=== PATIENT | male | born 1955 | race Caucasian/White ===

== ENCOUNTER 2017-12-24 08:11 | Emergency (ER) | payer MEDICARE ==
[2017-12-24] MEDS ORDERED: GLIPIZIDE5 MG PO (08:22)
[2017-12-24] MEDS ORDERED: LANTUS100 UNIT/M SC (08:24)
[2017-12-24 08:29] LABS: HEMATOCRIT 41.3 % (39.0-50.0); HEMOGLOBIN 14.1 g/dl (14.0-18.0); MEAN CELL VOLUME 90.2 fL CALC (80.0-100.0); MEAN CORPUSCULAR HGB 30.8 pG CALC (26.0-32.0); MEAN CORPUSCULAR HGB CONC 34.1 g/L CALC (32.0-36.0); RED BLOOD COUNT 4.58 mill/uL (4.70-6.10); RED CELL DISTRI WIDTH 13.1 % (11.5-15.5)
[2017-12-24 08:45] LABS: ALKALINE PHOSPHATASE 83 u/l (38-126); ANION GAP 19 (6-22 (CALC)); BILIRUBIN, TOTAL 1.3 mg/dL (0.0-1.4); BUN 14 mg/dL (8-23); BUN/CREATININE RATIO 14 (12-20 (CALC)); CARBON DIOXIDE 22 mmol/l (22-30); CHLORIDE 107 mmol/l (95-108); GFR > 60 ML/MIN (>=60 (CALC)); GFR FOR AFR.AMER. > 60 ML/MIN (>=60 (CALC)); LIPASE 178 u/l (23-300); POTASSIUM 4.5 mmol/l (3.5-5.1); SGOT/AST 76 u/l (19-48); SGPT/ALT 86 u/l (11-66); SODIUM 143 mmol/l (137-146); TOTAL PROTEIN 8.7 g/dL (6.3-8.2)
[2017-12-24 08:49] LABS: IMMATURE GRANULOCYTES 0.4 % (0.0-1.0); NEUT# 1.89 thou/uL (1.82-7.42)
[2017-12-24 09:24] LABS: URINE BILIRUBIN - DIPSTICK NEGATIVE (NEGATIVE); URINE BLOOD DIPSTICK LARGE (NEGATIVE); URINE COLOR YELLOW; URINE GLUCOSE - DIPSTICK NEGATIVE (NEGATIVE); URINE KETONE 15 mg/dL (NEGATIVE); URINE LEUK ESTERASE NEGATIVE (NEGATIVE); URINE NITRITE - DIPSTICK NEGATIVE (Negative); URINE PH 5.5 (4.5-8.0); URINE PROTEIN - DIPSTICK NEGATIVE (NEG-TRACE); URINE SPECIFIC GRAVITY 1.025
[2017-12-24 09:25] LABS: URINE CLARITY CLEAR
[2017-12-24 09:35] LABS: URINE RBC 25-50 RBC/hpf (0-5); URINE WBC 0-2 WBC/hpf (0-5)
[2017-12-24] MEDS ORDERED: TAMSULOSIN0.4 MG PO (10:10)
[2017-12-24] MEDS ORDERED: ZOFRAN ODT4 MG PO (10:10)
[2017-12-24] MEDS ORDERED: LORTAB 5/3255 MG PO (10:10)
[2017-12-24] MEDS ORDERED: KEFLEX250 MG PO (10:10)
[2017-12-24 11:09] VITALS: BP 138/77
== END 2017-12-24 11:09 | disposition home or self-care (01) ==
LOC: ED 08:11
PROVIDERS: Emergency Medicine
DX: E11.9 Type 2 diabetes mellitus without complications (principal); N20.1 Calculus of ureter; K75.9 Inflammatory liver disease, unspecified

== ENCOUNTER → 2018-11-05 | Outpatient (REF) | payer MEDICARE ==
[~2018-11-05] VITALS: Ht 177.8 cm; Wt 104.3 kg
[~2018-11-05] MED LIST: GLIPIZIDE5 MG PO; KEFLEX250 MG PO; LANTUS100 UNIT/M SC; LORTAB 5/3255 MG PO; MAG-OX 400400 MG PO; TAMSULOSIN0.4 MG PO; XIFAXAN550 MG PO; ZOFRAN ODT4 MG PO
[2018-11-05 08:52] VITALS: BP 141/78
== END | disposition home or self-care (01) ==
LOC: ORM 08:00 → PO 08:26
PROVIDERS: ATTEND Internal Medicine Gastroenterology
DX: Z01.818 Encounter for other preprocedural examination (principal); B18.2 Chronic viral hepatitis C; K74.60 Unspecified cirrhosis of liver; R94.5 Abnormal results of liver function studies; Z86.010 Personal history of colon polyps; E11.9 Type 2 diabetes mellitus without complications; B19.20 Unspecified viral hepatitis C without hepatic coma; Z87.442 Personal history of urinary calculi; Z98.890 Other specified postprocedural states; K00.0 Anodontia

== ENCOUNTER 2019-04-16 11:56 | Day surgery (SDC) | payer MEDICARE ==
[~2019-04-16] VITALS: Ht 180.3 cm; Wt 102.1 kg
[~2019-04-16 11:56] MED LIST changes: +GENERLAC10 GM/15 M PO; +KRISTALOSE10 GM PO
[2019-04-16 13:09] LABS: HEMATOCRIT 40.8 % (39.0-50.0); HEMOGLOBIN 13.8 g/dl (14.0-18.0); MEAN CELL VOLUME 88.3 fL CALC (80.0-100.0); MEAN CORPUSCULAR HGB 29.9 pG CALC (26.0-32.0); MEAN CORPUSCULAR HGB CONC 33.8 g/L CALC (32.0-36.0); NEUT# 1.49 thou/uL (1.82-7.42); RED BLOOD COUNT 4.62 mill/uL (4.70-6.10); RED CELL DISTRI WIDTH 13.2 % (11.5-15.5)
[2019-04-16 13:10] LABS: ALBUMIN 3.9 g/dL (3.2-5.0); ALKALINE PHOSPHATASE 79 u/l (38-126); ANION GAP 11 (6-22 (CALC)); BUN 11 mg/dL (8-23); BUN/CREATININE RATIO 16 (12-20 (CALC)); CARBON DIOXIDE 27 mmol/l (22-30); CHLORIDE 108 mmol/l (95-108); CREATININE 0.7 mg/dL (0.7-1.3); GFR > 60 ML/MIN (>=60 (CALC)); GFR FOR AFR.AMER. > 60 ML/MIN (>=60 (CALC)); POTASSIUM 4.1 mmol/l (3.5-5.1); SGOT/AST 100 u/l (19-48); SODIUM 141 mmol/l (137-146); TOTAL PROTEIN 8.2 g/dL (6.3-8.2)
[2019-04-16 13:13] LABS: BILIRUBIN, TOTAL 1.6 mg/dL (0.0-1.4)
[2019-04-16 15:25] VITALS: BP 135/67
== END 2019-04-16 15:40 | disposition home or self-care (01) ==
LOC: ENDO 11:56 → ORM 12:30 → ENDO 15:20
PROVIDERS: ATTEND Internal Medicine Gastroenterology
PROC: 0DBP8ZX Excision of Rectum, Via Natural or Artificial Opening Endoscopic, Diagnostic (ICD-10-PCS; principal; 2019-04-16)
PROC: 0DBN8ZX Excision of Sigmoid Colon, Via Natural or Artificial Opening Endoscopic, Diagnostic (ICD-10-PCS; 2019-04-16)
PROC: 0DBK8ZX Excision of Ascending Colon, Via Natural or Artificial Opening Endoscopic, Diagnostic (ICD-10-PCS; 2019-04-16)
PROC: 0DBL8ZX Excision of Transverse Colon, Via Natural or Artificial Opening Endoscopic, Diagnostic (ICD-10-PCS; 2019-04-16)
PROC: 06L38CZ Occlusion of Esophageal Vein with Extraluminal Device, Via Natural or Artificial Opening Endoscopic (ICD-10-PCS; 2019-04-16)
DX: Z12.11 Encounter for screening for malignant neoplasm of colon (principal); D12.2 Benign neoplasm of ascending colon; D12.3 Benign neoplasm of transverse colon; D12.8 Benign neoplasm of rectum; D12.5 Benign neoplasm of sigmoid colon; D12.7 Benign neoplasm of rectosigmoid junction; K64.4 Residual hemorrhoidal skin tags; K64.8 Other hemorrhoids; K74.69 Other cirrhosis of liver; I85.10 Secondary esophageal varices without bleeding; K29.70 Gastritis, unspecified, without bleeding; K31.9 Disease of stomach and duodenum, unspecified; B18.2 Chronic viral hepatitis C; K72.90 Hepatic failure, unspecified without coma; D69.59 Other secondary thrombocytopenia; E11.9 Type 2 diabetes mellitus without complications; Z86.010 Personal history of colon polyps

== ENCOUNTER 2019-04-16 17:18 | Emergency (ER) | payer MEDICARE ==
[~2019-04-16] VITALS: Ht 180.3 cm; Wt 100.0 kg
[2019-04-16 18:41] LABS: HEMATOCRIT 39.5 % (39.0-50.0); HEMOGLOBIN 13.7 g/dl (14.0-18.0); IMMATURE GRANULOCYTES 0.3 % (0.0-5.0); MEAN CELL VOLUME 88.6 fL CALC (80.0-100.0); MEAN CORPUSCULAR HGB 30.7 pG CALC (26.0-32.0); MEAN CORPUSCULAR HGB CONC 34.7 g/L CALC (32.0-36.0); NEUT# 2.37 thou/uL (1.82-7.42); RED BLOOD COUNT 4.46 mill/uL (4.70-6.10)
[2019-04-16 18:48] LABS: ALBUMIN 3.9 g/dL (3.2-5.0); ALKALINE PHOSPHATASE 76 u/l (38-126); ANION GAP 12 (6-22 (CALC)); BILIRUBIN, TOTAL 1.7 mg/dL (0.0-1.4); BUN 13 mg/dL (8-23); BUN/CREATININE RATIO 18 (12-20 (CALC)); CARBON DIOXIDE 24 mmol/l (22-30); CHLORIDE 109 mmol/l (95-108); CREATININE 0.8 mg/dL (0.7-1.3); GFR > 60 ML/MIN (>=60 (CALC)); GFR FOR AFR.AMER. > 60 ML/MIN (>=60 (CALC)); LIPASE 286 u/l (23-300); SGOT/AST 93 u/l (19-48); SODIUM 140 mmol/l (137-146); TOTAL PROTEIN 8.5 g/dL (6.3-8.2)
[2019-04-16 21:29] VITALS: BP 136/71
== END 2019-04-16 21:29 | disposition home or self-care (01) ==
LOC: ED 17:18 → ED-I 17:46 → ED 17:46 → ED-I 19:20 → ED 21:29
PROVIDERS: Family Medicine
DX: G89.18 Other acute postprocedural pain (principal); R07.9 Chest pain, unspecified; R94.31 Abnormal electrocardiogram [ECG] [EKG]; F17.200 Nicotine dependence, unspecified, uncomplicated; M25.512 Pain in left shoulder; M25.511 Pain in right shoulder; M54.9 Dorsalgia, unspecified; Y92.009 Unspecified place in unspecified non-institutional (private) residence as the place of occurrence of the external cause; K74.60 Unspecified cirrhosis of liver; R16.1 Splenomegaly, not elsewhere classified; K80.20 Calculus of gallbladder without cholecystitis without obstruction; E11.9 Type 2 diabetes mellitus without complications; Z79.4 Long term (current) use of insulin

== ENCOUNTER 2019-08-30 09:50 | Emergency (ER) | payer MEDICARE ==
[2019-08-30] MEDS ORDERED: EPCLUSA PO (10:11)
[2019-08-30] MEDS ORDERED: DOXYCYC MONO100 M2 PO (10:21)
[2019-08-30 10:47] VITALS: BP 122/55
== END 2019-08-30 10:47 | disposition home or self-care (01) ==
LOC: ED 09:50
DX: J06.9 Acute upper respiratory infection, unspecified (principal); E11.9 Type 2 diabetes mellitus without complications; Z79.4 Long term (current) use of insulin

== ENCOUNTER 2021-09-16 20:38 | Emergency (ER) | payer MEDICARE ==
[~2021-09-16] VITALS: Ht 180.3 cm; Wt 99.0 kg
[~2021-09-16 20:38] MED LIST changes: +DOXYCYC MONO100 M2 PO; +EPCLUSA PO; +LANTUS100 UNIT SC; -LANTUS100 UNIT/M SC
[2021-09-16 21:20] LABS: HEMATOCRIT 43.3 % (39.0-50.0); IMMATURE GRANULOCYTES 0.3 % (0.0-5.0); MEAN CELL VOLUME 88.9 fL CALC (80.0-100.0); MEAN CORPUSCULAR HGB 30.8 pG CALC (26.0-32.0); MEAN CORPUSCULAR HGB CONC 34.6 g/dL CAL (32.0-36.0); NEUT# 7.69 thou/uL (1.82-7.42); RED BLOOD COUNT 4.87 mill/uL (4.70-6.10); RED CELL DISTRI WIDTH 12.9 % (11.5-15.5)
[2021-09-16 21:37] LABS: ALBUMIN 4.5 g/dL (3.2-5.0); ALKALINE PHOSPHATASE 92 u/l (38-126); ANION GAP 16 (6-22 (CALC)); BILIRUBIN, TOTAL 2.2 mg/dL (0.0-1.4); BUN 21 mg/dL (8-23); BUN/CREATININE RATIO 19 (12-20 (CALC)); CARBON DIOXIDE 23 mmol/l (22-30); CHLORIDE 102 mmol/l (95-108); CPK 150 u/l (52-200); CREATININE 1.1 mg/dL (0.7-1.3); GFR > 60 ML/MIN (>=60 (CALC)); GFR FOR AFR.AMER. > 60 ML/MIN (>=60 (CALC)); POTASSIUM 4.6 mmol/l (3.5-5.1); SGOT/AST 101 u/l (19-48); SODIUM 137 mmol/l (137-146)
[2021-09-16] MEDS ORDERED: OMEPRAZOLE20 MG PO (21:45)
[2021-09-16] MEDS ORDERED: MAGNESIUM CITR125 MG PO (21:45)
[2021-09-16] MEDS ORDERED: SPIRONOLACTONE25 MG PO (21:47)
[2021-09-16 21:48] LABS: MYOGLOBIN 158 ng/mL (0 - 121)
[2021-09-16] MEDS ORDERED: FUROSEMIDE20 MG PO (21:48)
[2021-09-16 22:17] LABS: URINE BILIRUBIN - DIPSTICK NEGATIVE (NEGATIVE); URINE BLOOD DIPSTICK LARGE (NEGATIVE); URINE COLOR YELLOW; URINE GLUCOSE - DIPSTICK >=1000 mg/dL (NEGATIVE); URINE KETONE 15 mg/dL (NEGATIVE); URINE LEUK ESTERASE NEGATIVE (NEGATIVE); URINE NITRITE - DIPSTICK NEGATIVE (Negative); URINE PH 5.5 (4.5-8.0); URINE PROTEIN - DIPSTICK NEGATIVE (NEG-TRACE); URINE SPECIFIC GRAVITY >=1.030; URINE UROBILINOGEN - DIPSTICK 0.2 E.U./dL (0.2)
[2021-09-16 22:25] LABS: URINE HYALINE CAST FEW lpf (NONE-RARE)
[2021-09-16] MEDS ORDERED: CYCLOBENZAPRINE10 MG PO (23:55)
[2021-09-16] MEDS ORDERED: NAPROXEN500 MG PO (23:55)
[2021-09-17 00:10] VITALS: BP 128/65
== END 2021-09-17 00:30 | disposition home or self-care (01) ==
LOC: ED 20:38
PROVIDERS: Emergency Medicine
DX: R25.2 Cramp and spasm (principal); E11.9 Type 2 diabetes mellitus without complications; Z79.84 Long term (current) use of oral hypoglycemic drugs; Z79.4 Long term (current) use of insulin

== ENCOUNTER 2021-12-11 08:24 | Observation (INO) | payer MEDICARE ==
[~2021-12-11] VITALS: Ht 177.8 cm; Wt 91.0 kg
[2021-12-11] VITALS (26 sets, daily range): BP systolic 98–145; BP diastolic 51–77
[~2021-12-11 08:24] MED LIST changes: +CYCLOBENZAPRINE10 MG PO; +FUROSEMIDE20 MG PO; +MAGNESIUM CITR125 MG PO; +NAPROXEN500 MG PO; +OMEPRAZOLE20 MG PO; +SPIRONOLACTONE25 MG PO
--- NOTE | 2021-12-11 09:11 | NUR ---
PT TO ROOM W/STEADY GAIT.
--- NOTE | 2021-12-11 10:00 | NUR ---
Reassessment of patient completed. No distress noted.
[2021-12-11 10:33] LABS: HEMATOCRIT 36.8 % (39.0-50.0); HEMOGLOBIN 12.7 g/dl (14.0-18.0); IMMATURE GRANULOCYTES 0.6 % (0.0-5.0); MEAN CELL VOLUME 89.3 fL CALC (80.0-100.0); MEAN CORPUSCULAR HGB 30.8 pG CALC (26.0-32.0); MEAN CORPUSCULAR HGB CONC 34.5 g/dL CAL (32.0-36.0); RED BLOOD COUNT 4.12 mill/uL (4.70-6.10); RED CELL DISTRI WIDTH 12.5 % (11.5-15.5)
[2021-12-11 10:39] LABS: PROTHROMBIN TIME 10.4 SECONDS (9.0-12.5)
--- NOTE | 2021-12-11 11:00 | NUR ---
Reassessment of patient completed. No distress noted.
[2021-12-11 11:05] LABS: ALBUMIN 3.6 g/dL (3.2-5.0); ALKALINE PHOSPHATASE 65 u/l (38-126); ANION GAP 8 (6-22 (CALC)); BUN 14 mg/dL (8-23); BUN/CREATININE RATIO 18 (12-20 (CALC)); CARBON DIOXIDE 27 mmol/l (22-30); CHLORIDE 106 mmol/l (95-108); CREATININE 0.8 mg/dL (0.7-1.3); GFR > 60 ML/MIN (>=60 (CALC)); GFR FOR AFR.AMER. > 60 ML/MIN (>=60 (CALC)); POTASSIUM 4.9 mmol/l (3.5-5.1); SGOT/AST 52 u/l (19-48); SODIUM 135 mmol/l (137-146); TOTAL PROTEIN 8.1 g/dL (6.3-8.2)
[2021-12-11 11:06] LABS: BILIRUBIN, TOTAL 1.2 mg/dL (0.0-1.4)
[2021-12-11 11:33] LABS: MANUAL DIFFERENTIAL YES
[2021-12-11 11:58] LABS: PLATELET COUNT 19 thou/uL (130-400)
[2021-12-11 11:59] LABS: BAND 0 % (0-8)
--- NOTE | 2021-12-11 12:00 | NUR ---
Reassessment of patient completed. No distress noted.
--- NOTE | 2021-12-11 13:18 | NUR ---
patient and vistor notified myself and charge nurse after being brought to tx room that they were covid + as of 2 days ago. educated patient on isolation precautions that will be implemented and showed patient and visitor how to utilize the call light for needs
--- NOTE | 2021-12-11 15:13 | NUR ---
REPORT CALLED TO PAOLO HANSEN
[2021-12-11] MEDS ORDERED: MAGNESIUM OXID400 M2 PO (15:31)
--- NOTE | 2021-12-11 15:48 | NUR ---
RECEIVE REPORT FROM ER NURSE WHIT. PATIENT COVID 19 POSITIVE. NO RESPIRAQTORY DISTRESS AT THIS TIME. PATIENT A ROOM AIR. PATIENT IS EDUCATES ABOUT ADMISSION, MEDICATIONS AND NURASING PLAN. PATIENT REFER UNDERSTAND. AFFECTED SKIN AREA ISSUE IN THE LEFT INNER THIGH PHOTO IS TAKE.
--- NOTE | 2021-12-11 18:45 | NUR ---
RECEIVED REPORT FROM PAOLO CAMPOS.
--- NOTE | 2021-12-11 20:10 | NUR ---
PT IN BED A&O X2. EVEN AND UNLABORED RESPIRATIONS; CLEAR LUNG SOUNDS UPON AUSCULTATION. ACTIVE BOWEL SOUNDS X4 QUADRANTS. IV SITE HEALTHY AND PATENT. PT TEARFUL; CONCERNED ABOUT HIS HEALTH; PT MORE CALM AFTER THERAPEUTIC LISTENING. BED ALARM AND SAFETY PRECAUTIONS IN PLACE WITH CALL LIGHT IN REACH.
[2021-12-12 00:23] VITALS: BP 128/67
--- NOTE | 2021-12-12 04:15 | NUR ---
PT SLEEPING. ADMINISTERED SCHEDULED ANTIBIOTIC. NEW IV FLUID BAG HANGING. TELEMETRY; BED ALARM, AND SAFETY PRECAUTIONS IN PLACE. CALL LIGHT WITHIN REACH.
[2021-12-12 04:43] VITALS: BP 120/69
[2021-12-12 05:46] LABS: ALBUMIN 3.1 g/dL (3.2-5.0); ALKALINE PHOSPHATASE 59 u/l (38-126); ANION GAP 9 (6-22 (CALC)); BUN 11 mg/dL (8-23); BUN/CREATININE RATIO 16 (12-20 (CALC)); CARBON DIOXIDE 22 mmol/l (22-30); CHLORIDE 110 mmol/l (95-108); CREATININE 0.7 mg/dL (0.7-1.3); GFR > 60 ML/MIN (>=60 (CALC)); GFR FOR AFR.AMER. > 60 ML/MIN (>=60 (CALC)); MAGNESIUM 1.7 mg/dL (1.6-2.3); POTASSIUM 4.1 mmol/l (3.5-5.1); SGOT/AST 43 u/l (19-48); SODIUM 136 mmol/l (137-146); TOTAL PROTEIN 7.3 g/dL (6.3-8.2)
[2021-12-12 05:57] LABS: HEMATOCRIT 34.9 % (39.0-50.0); HEMOGLOBIN 12.2 g/dl (14.0-18.0); IMMATURE GRANULOCYTES 0.7 % (0.0-5.0); MEAN CELL VOLUME 88.4 fL CALC (80.0-100.0); MEAN CORPUSCULAR HGB 30.9 pG CALC (26.0-32.0); NEUT# 0.93 thou/uL (1.82-7.42); RED BLOOD COUNT 3.95 mill/uL (4.70-6.10); RED CELL DISTRI WIDTH 12.5 % (11.5-15.5)
--- NOTE | 2021-12-12 08:00 | NUR ---
SHIFT CHANGE REPORT, PT AWAKE AND ALERT, ORIENTED TO PLACE AND [place], DENIES PAIN, STATES HE FEELS DEPRESSED AND WANTS TO GO HOME, INFORMED OFPROCESS AND THAT MD WILL BE HERE SOON TO DISCUSS PLAN OF CARE. IVF INFUSING, TELE MONITOR IN PLACE, CALL VANCE IN REACH AND BED LOCKED IN LOWEST POSITION.
[2021-12-12 09:56] VITALS: BP 128/63
[2021-12-12 11:08] VITALS: BP 111/55
--- NOTE | 2021-12-12 12:27 | NUR ---
ASSISTED TO BR, PT AMBULATED ACK TO BED IDEPENDENTLY. DR CALDERON CONSULTED, SAID HE WOULD PRESCRIBE ANTIBIOTICS BUT AWAITING CX RESULTS. PT RESPONDED TO QUESTIONS BEST HE REMEMBERED. WOUND HAS ACTIVE BLOODY EXUDATE AT THIS TIME, CLEANED WITH 0.9 NS AND DRY DRESSING APPLIED.
[2021-12-12 15:43] VITALS: BP 125/66
--- NOTE | 2021-12-12 17:00 | NUR ---
PT PUT CALL VANCE ON, STAFF AT NURSING STATION ANSWERED BUT DIDNT GO TO ASSIST PT, NURSE WENT IN TO INVESTIGATE REASON FOR CALL AND FOUND PT STANDING AT BEDSIDE WITH BM ALL OVER FLOOR AND ARM WITH STRETCHED OUT TO PREVENT CATHETER FROM DISLODGING. PT WAS VERY EMBARRASSED AND CRYING STATING HE COULDN'T WAIT ANY LONGER. PT WAS ASSISTED TO BR AND SHOWERED, THEN SETTLED BACK IN BED, HE WAS APPRECIATIVE, CALL VANCE PLACED IN REACH
--- NOTE | 2021-12-12 17:03 | NUR ---
CALLED DR. MONAE ON CONSULTATION FOR THIS PT.
--- NOTE | 2021-12-12 19:20 | NUR ---
REPORT RECEIVED FROM Mauro DIETZ RN
--- NOTE | 2021-12-12 22:16 | NUR ---
MEDICATIONS ADMINISTERED PER EMAR, SEE EMAR.
--- NOTE | 2021-12-13 00:30 | NUR ---
PATIENT RESTING COMFORTABLY, ASKING FOR A CUP OF ICE WATER, ICE WATER PROVIDED BY WRITTER, CALL LIGHT AND BEDSIDE TABLE WITHIN REACH.
[2021-12-13 05:47] LABS: ALBUMIN 3.1 g/dL (3.2-5.0); ALKALINE PHOSPHATASE 63 u/l (38-126); ANION GAP 8 (6-22 (CALC)); BILIRUBIN, TOTAL 1.4 mg/dL (0.0-1.4); BUN 8 mg/dL (8-23); BUN/CREATININE RATIO 13 (12-20 (CALC)); C-REACTIVE PROTEIN 0.7 mg/dL (0-0.9); CARBON DIOXIDE 21 mmol/l (22-30); CHLORIDE 111 mmol/l (95-108); CREATININE 0.7 mg/dL (0.7-1.3); GFR > 60 ML/MIN (>=60 (CALC)); GFR FOR AFR.AMER. > 60 ML/MIN (>=60 (CALC)); MAGNESIUM 1.6 mg/dL (1.6-2.3); POTASSIUM 3.8 mmol/l (3.5-5.1); SGOT/AST 39 u/l (19-48); SODIUM 135 mmol/l (137-146); TOTAL PROTEIN 7.1 g/dL (6.3-8.2)
[2021-12-13 05:58] LABS: HEMATOCRIT 34.9 % (39.0-50.0); HEMOGLOBIN 12.2 g/dl (14.0-18.0); MEAN CELL VOLUME 89.5 fL CALC (80.0-100.0); MEAN CORPUSCULAR HGB 31.3 pG CALC (26.0-32.0); RED BLOOD COUNT 3.9 mill/uL (4.70-6.10); RED CELL DISTRI WIDTH 12.4 % (11.5-15.5)
[2021-12-13 05:59] LABS: NEUT# 0.84 thou/uL (1.82-7.42)
--- NOTE | 2021-12-13 06:00 | NUR ---
MEDICATIONS ADMINISTER PER EMAR, SEE EMAR.
--- NOTE | 2021-12-13 06:51 | NUR ---
NOTIFIED DR OSULLIVAN OF CRITICAL LAB VALUES.
--- NOTE | 2021-12-13 07:00 | NUR ---
RECEIVE REPORT FROM OLGA LIDIA BOONE.
[2021-12-13 08:00] VITALS: BP 144/68
--- NOTE | 2021-12-13 08:00 | NUR ---
PATIENT ALERT AND ORIENTES X3. NO RESPIRATORY DISTRESS AT THIS TIME. PATIENT RESTING IN BED. PATIENT IS EDUCATES ABOUT MEDICATIONS AND NURSING PLAN FOR TODAY. PATIENT REFER UNDERSTAND.
--- NOTE | 2021-12-13 08:02 | NUR ---
S: LINDA MELLO is a 66 M who presents with left thigh abscess. He has a history of diabetes and hepatitis C. All medications in patient's chart were reviewed. O: VS: BP 125/66 mmHg, P 65 bpm, RR 21 bpm, T 98.8 F W 90.6 kg, HT 5 ft 10 in, Scr= 0.7 mg/dL, CrCl= 93.1 ml/min A: Preliminary blood cultures show no growth after 24 hours. Wound culture is pending. P: Patient is on cefepime 1 g IV q12h. Vancomycin ordered for pharmacy to dose. Start Vancomycin 1,250 mg IV Q12H. Vancomycin trough is drawn before the 4th dose on 12/14/2021 at 0430. Vancomycin goal trough is between 10-15 mcg/ml Pharmacy will follow and or advise on antibiotics use as needed.
[2021-12-13 11:01] VITALS: BP 128/67
--- NOTE | 2021-12-13 14:04 | NUR ---
PATIENT WITH ORDER TO TRANDFUSE PATELETS TOMORROW MORNING IN THE OPERETING ROOM. ORDER CONFIRMED WITH PATRICIO OR NURSE.
[2021-12-13 14:23] LABS: INTERNATIONAL NORMALIZED RATIO 1.1 RATIO (0.7-1.3)
--- NOTE | 2021-12-13 19:05 | NUR ---
REPORT RECEIVED FROM Janice SMITH RN. PATIENT IS TO RECEIVED PLATELETS IN OR TOMORROW MORNING. CONSULTED WITH PUBLISHING DIRECTOR WHO CONFRIMED.
[2021-12-13 19:13] VITALS: BP 128/65
--- NOTE | 2021-12-13 21:00 | NUR ---
MEDICATIONS ADMINISTERED PER EMAR, SEE EMAR. NOTIFIED PT HE IS TO BE NPO AT MIDNIGHT IN PREPARARTION FOR HIS PROCEDURE IN THE AM.
[2021-12-14] VITALS (14 sets, daily range): BP systolic 117–150; BP diastolic 60–79
--- NOTE | 2021-12-14 00:25 | NUR ---
PATIENT RESTING COMFORTABLY, DEENIES ANY CURRENT NEEDS, CALL LIGHT WIHTIN REACH.
--- NOTE | 2021-12-14 04:00 | NUR ---
PANTIBIOTIC HUNG AT THIS TIME
[2021-12-14 05:05] LABS: ANION GAP 8 (6-22 (CALC)); BUN 8 mg/dL (8-23); BUN/CREATININE RATIO 11 (12-20 (CALC)); CARBON DIOXIDE 22 mmol/l (22-30); CHLORIDE 110 mmol/l (95-108); CREATININE 0.7 mg/dL (0.7-1.3); GFR > 60 ML/MIN (>=60 (CALC)); GFR FOR AFR.AMER. > 60 ML/MIN (>=60 (CALC)); MAGNESIUM 1.5 mg/dL (1.6-2.3); POTASSIUM 3.6 mmol/l (3.5-5.1); SODIUM 136 mmol/l (137-146)
[2021-12-14 05:10] LABS: HEMATOCRIT 33.2 % (39.0-50.0); HEMOGLOBIN 11.6 g/dl (14.0-18.0); MEAN CELL VOLUME 87.4 fL CALC (80.0-100.0); MEAN CORPUSCULAR HGB 30.5 pG CALC (26.0-32.0); MEAN CORPUSCULAR HGB CONC 34.9 g/dL CAL (32.0-36.0); RED BLOOD COUNT 3.8 mill/uL (4.70-6.10); RED CELL DISTRI WIDTH 12.3 % (11.5-15.5)
[2021-12-14 05:11] LABS: NEUT# 1.09 thou/uL (1.82-7.42)
--- NOTE | 2021-12-14 06:24 | NUR ---
SPOKE TO SHANNON PIZARRO PATIENT POA. SHE STATES NO ONE HAS INFORMED HER SHE NEEDS TO SIGN ANYTHING, AND SHE IS NOT AWARE OF WHAT PROCEDURE IS BEING DONE.
--- NOTE | 2021-12-14 06:26 | NUR ---
BAND BIAS MACHINE OPERATOR NOTIFIED.
--- NOTE | 2021-12-14 06:45 | NUR ---
CALL TO LAB TO VERIFY PLATELETS ARE READY FOR PREOP ADMINISTRATION, SURVEILLANCE DIRECTOR WILL CALL BACK WITH INFO. PER REPORT PLATELETS SHOULD WERE ALREADY ORDERED.
--- NOTE | 2021-12-14 07:18 | NUR ---
CALLED OR TO NOTIFY ABOUT PATIENTS CONSENT NOT BEING SIGNED BY POA. INSTRUCTED TO CALL DOV AT [phone]. NO SURGERY UNTIL CONSENT IS SIGNED.
--- NOTE | 2021-12-14 07:23 | NUR ---
Ang DAVID RN. CALLED PT . OR TO CALL PATIENT .
--- NOTE | 2021-12-14 08:00 | NUR ---
RECEIVE REPORT FROM OLGA LIDIA BOONE. PATIENT STABLE RESTING IN BED. ROOM AIR. NO RESPIRATORY DISTRESS AT THIS TIME. PATIENT WITH OR PROCEDURE PLAN FOR TODAY. WE COMMUNICATED WITH THE SO THAT SHE COULD SIGN THE CONSENTS. /POA ARRIVED AT 07:30 SHE SIGNED. THE DOCTOR DOV EDUCATED HER AND GUIDED ABOUT PROCEDURE. SHE REFER UNDERSTAND.
--- NOTE | 2021-12-14 08:30 | NUR ---
PATIENT IN OR.
--- NOTE | 2021-12-14 09:45 | NUR ---
PATIENT RETURNSSTABLE FROM OR. PROTOCOL AND MEDICAL ORDER FOLLOWED.
--- NOTE | 2021-12-14 16:00 | NUR ---
PATIENT IN BED WATCHING TV. NO SXS OF DISTRESS, PATIENT DENIES NEEDING ANYTHING.
--- NOTE | 2021-12-14 19:45 | NUR ---
PT RESTING IN BED WATCHING TV, NO SIGNS OF DISTRESS NOTED, RESP EVEN AND UNLABORED. PT ALERT AND ORIENTED X3, NOTED PT HAS SOME DELAY AND SLURRED, ANSWERS QUESTIONS APPROPRIATELY, MOVES ALL EXTREMITIES. DISCUSSED POC, VERBALIZED UNDERSTANDING. SCD TO RLE, LLE DRESSING CDI, DENIES ANY PAIN AT THIS TIME. NEW BAG HUNG, ASSESSMENT COMPLETED, CALL LIGHT IN REACH,CONTINUE TO MONITOR.
--- NOTE | 2021-12-14 20:42 | NUR ---
PT WATCHING TV, NO SIGNS OF DISTRESS NOTED, RESP EVEN AND UNLABORED. PT VOICES NO NEEDS OR COMLAINTS AT THIS TIME. MEDICATED PER MAR. CALL LIGHT IN REACH,CONTINUE TO MONITOR.
--- NOTE | 2021-12-15 00:17 | NUR ---
PT RESTING IN BED, VITALS OBTAINED, PT VOICES NO NEEDS OR COMPLAINTS, CALL LIGHT IN REACH,CONTINUE TO MONITOR.
--- NOTE | 2021-12-15 04:04 | NUR ---
PT C/O HEADACHE MEDICATED WITH TYLENOL, IV ANTIBIOTIC HUNG. NO SIGNS OF DISTRESS NOTED, RESP EVEN AND UNLABORED. CALL LIGHT IN REACH,CONTINUE TO MONITOR.
[2021-12-15 04:15] VITALS: BP 126/52
[2021-12-15 05:14] LABS: ALBUMIN 3.4 g/dL (3.2-5.0); ALKALINE PHOSPHATASE 59 u/l (38-126); ANION GAP 7 (6-22 (CALC)); BILIRUBIN, TOTAL 1.1 mg/dL (0.0-1.4); BUN 6 mg/dL (8-23); BUN/CREATININE RATIO 10 (12-20 (CALC)); CARBON DIOXIDE 21 mmol/l (22-30); CHLORIDE 110 mmol/l (95-108); CREATININE 0.7 mg/dL (0.7-1.3); GFR > 60 ML/MIN (>=60 (CALC)); GFR FOR AFR.AMER. > 60 ML/MIN (>=60 (CALC)); MAGNESIUM 1.6 mg/dL (1.6-2.3); POTASSIUM 3.5 mmol/l (3.5-5.1); SGOT/AST 43 u/l (19-48); SODIUM 135 mmol/l (137-146); TOTAL PROTEIN 7.4 g/dL (6.3-8.2)
[2021-12-15 05:23] LABS: HEMATOCRIT 33.4 % (39.0-50.0); HEMOGLOBIN 11.8 g/dl (14.0-18.0); MEAN CELL VOLUME 87.7 fL CALC (80.0-100.0); MEAN CORPUSCULAR HGB CONC 35.3 g/dL CAL (32.0-36.0); RED BLOOD COUNT 3.81 mill/uL (4.70-6.10); RED CELL DISTRI WIDTH 12.2 % (11.5-15.5)
[2021-12-15 05:24] LABS: NEUT# 1.43 thou/uL (1.82-7.42)
--- NOTE | 2021-12-15 08:00 | NUR ---
GOT REPORT FROM UNIT SECRETARY NURSE. PATIENT IS AOX3, DENIES ANY SOB OR CHEST PAIN. PATIENT WOUND WAS EXPOSED, CLEANSED WOUND AND APPLIED DRY GUAZE AND WRAP. PATIENT TOLERATED WELL.
[2021-12-15 08:28] VITALS: BP 143/73
--- NOTE | 2021-12-15 12:00 | NUR ---
PATIENT SITTING UP IN BED WATCHING TV, AWAITING DISCHARGE. HE CALLED HIS SPOUSE TO INFORM HER THAT HE WILL BE GETTING DISCHARGED.NO QUESTIONS OR CONCERNS AT THIS TIME.
[2021-12-15] MEDS ORDERED: LEVAQUIN750 M1 PO (12:39)
--- NOTE | 2021-12-15 13:38 | NUR ---
Discharge instructions given. Patient verbalizes understanding of same. Discharged in stable condition via Wheelchair to Home with family WITH HOME HEALTH. All belongings sent with pt.
== END 2021-12-15 13:38 ==
LOC: ED 08:24 → ED-I 11:59 → ED 12:09 → MS2 12:10
PROVIDERS: Nurse Practitioner; ADMIT Internal Medicine; ATTEND Internal Medicine
PROC: 30233R1 Transfusion of Nonautologous Platelets into Peripheral Vein, Percutaneous Approach (ICD-10-PCS; principal; 2021-12-14)
PROC: 0JDM0ZZ Extraction of Left Upper Leg Subcutaneous Tissue and Fascia, Open Approach (ICD-10-PCS; 2021-12-14)
DX: L02.416 Cutaneous abscess of left lower limb (principal); D69.6 Thrombocytopenia, unspecified; D72.819 Decreased white blood cell count, unspecified; L03.116 Cellulitis of left lower limb; U07.1 COVID-19; E83.42 Hypomagnesemia; E11.9 Type 2 diabetes mellitus without complications; B18.2 Chronic viral hepatitis C; K72.90 Hepatic failure, unspecified without coma; B96.5 Pseudomonas (aeruginosa) (mallei) (pseudomallei) as the cause of diseases classified elsewhere; Z79.4 Long term (current) use of insulin; Z79.84 Long term (current) use of oral hypoglycemic drugs
CPT/HCPCS: J0692; J3370; J3490; P9034; Q3014

== ENCOUNTER 2024-08-18 10:48 | Emergency (ER) | payer MEDICARE ==
[2024-08-18] VITALS (16 sets, daily range): BP systolic 86–152; BP diastolic 54–88
[~2024-08-18] VITALS: Ht 177.8 cm; Wt 77.0 kg
[~2024-08-18 10:48] MED LIST changes: +LEVAQUIN750 M1 PO; +MAGNESIUM OXID400 M2 PO
--- NOTE | 2024-08-18 10:48 | NUR ---
PT TO ROOM VIA EMS
[2024-08-18] MEDS ORDERED: SODIUM CHLORIDE 0.9% 1,000 ML IV ONE (11:00)
[2024-08-18 11:07] LABS: BASO% 1.4 % (0-3); EOS% 1.9 % (0-8); HEMOGLOBIN 13.7 g/dl (14.0-18.0); IMMATURE GRANULOCYTES 0.2 % (0.0-5.0); LYMPH% 7.4 % (15-41); MEAN CORPUSCULAR HGB 33.1 pG CALC (26.0-32.0); MEAN CORPUSCULAR HGB CONC 34.6 g/dL CAL (32.0-36.0); MONO% 8.9 % (2-13); NEUT# 4.67 thou/uL (1.82-7.42); NEUT% 80.2 % (42-76); RED BLOOD COUNT 4.14 mill/uL (4.70-6.10); RED CELL DISTRI WIDTH 16.8 % (11.5-15.5)
[2024-08-18 11:10] LABS: HEMATOCRIT 39.6 % (39.0-50.0); MEAN CELL VOLUME 95.7 fL CALC (80.0-100.0)
[2024-08-18 11:19] LABS: ALBUMIN 3.6 g/dL (3.2-5.0); POTASSIUM 4.2 mmol/l (3.5-5.1); TOTAL PROTEIN 8.6 g/dL (6.3-8.2)
[2024-08-18 11:20] LABS: BILIRUBIN, TOTAL 7.7 mg/dL (0.2-1.3)
[2024-08-18] MEDS ORDERED: LORazepam 2 MG/ML IV ONE ×2 (11:35→14:15)
--- NOTE | 2024-08-18 11:42 | NUR ---
PT RESTING WITH FAMILY AT BEDSIDE. NO NEEDS AT THIS TIME.
--- NOTE | 2024-08-18 12:08 | NUR ---
PT UPDATED ON STATUS
[2024-08-18] MEDS ORDERED: TRAMADOL HYDROC50 M1 PO (13:02)
[2024-08-18] MEDS ORDERED: SENNA/DSS1 TAB PO (13:03)
[2024-08-18] MEDS ORDERED: PROCHLORPERAZINE5 M1 PO (13:03)
[2024-08-18] MEDS ORDERED: GLIPIZIDE10 M3 PO (13:04)
[2024-08-18] MEDS ORDERED: FUROSEMIDE20 MG PO (13:04)
[2024-08-18] MEDS ORDERED: ALDACTONE50 MG PO (13:05)
[2024-08-18] MEDS ORDERED: LORAZEPAM0.5 MG PO (13:05)
[2024-08-18] MEDS ORDERED: HALOPERIDOL2 MG/ML PO (13:06)
[2024-08-18] MEDS ORDERED: MORPHINE SULFA PO (13:09)
[2024-08-18] MEDS ORDERED: prednisoLONE SODIUM PHOSPHATE 15 MG UDC PO ONE (13:10)
[2024-08-18] MEDS ORDERED: BISACODYL10 M1 RE (13:10)
--- NOTE | 2024-08-18 14:41 | NUR ---
[facility] HERE TO GET PATIENT. PTS VSS. TRANSFERRED CARE OF PT.
== END 2024-08-18 14:47 | disposition hospice, inpatient (51) ==
LOC: ED 10:48 → ED-I 12:45 → ED 13:07 → ED-I 13:07 → MS2 13:08 → ED 13:08 → MS2 14:41 → ED 14:47
PROVIDERS: Family Medicine
DX: Z51.5 Encounter for palliative care (principal); C22.9 Malignant neoplasm of liver, not specified as primary or secondary; K72.90 Hepatic failure, unspecified without coma; E11.9 Type 2 diabetes mellitus without complications; B19.20 Unspecified viral hepatitis C without hepatic coma; Z66 Do not resuscitate; Z79.84 Long term (current) use of oral hypoglycemic drugs; Z79.4 Long term (current) use of insulin
CPT/HCPCS: J2060